=== PATIENT | male | born 1980 | race Caucasian/White ===

== ENCOUNTER 2018-01-06 20:44 | Emergency (ER) | payer MEDICAID ==
[2018-01-06 21:51] VITALS: BP 209/111
== END 2018-01-06 21:39 | disposition left against medical advice (07) ==
LOC: ER 21:27
DX: M79.641 Pain in right hand (principal); I10 Essential (primary) hypertension; R05 Cough; J02.9 Acute pharyngitis, unspecified; R68.83 Chills (without fever); Z90.49 Acquired absence of other specified parts of digestive tract; Z98.890 Other specified postprocedural states; Z53.21 Procedure and treatment not carried out due to patient leaving prior to being seen by health care provider